=== PATIENT | male | born 1990 | race Caucasian/White ===

== ENCOUNTER 2018-10-06 12:06 | Emergency (ER) | payer BC, SELFPAY ==
[2018-10-06 12:07] VITALS: BP 130/85; PULSE 74; RESP 16; TEMP 36.6; O2SAT 97; BMI 25.9
[2018-10-06] MEDS: 0.9% Normal Saline 1,000 ML 1000 ML IV (13:08)
[2018-10-06] MEDS: Ondansetron 4 MG/2 ML Vial IV (13:08)
[2018-10-06 13:11] LABS: Absolute Lymphocyte Count 1.13 X10^3/ul (0.83-4.51); Absolute Neutrophil Count 9.6 X10^3/uL (2.0-7.7); Basophil# 0.01 X10^3/uL; Basophil% 0.1 % (0-1); Eosinophil# 0.09 X10^3/uL; Eosinophils% 0.8 % (0-5); Hematocrit 50.4 % (40-54); Hemoglobin 17.8 g/dl (13.0-16.5); Lymphocyte # 1.13 X10^3/ul (4.0); Lymphocyte % 9.7 % (19-41); Mean Corp Hgb Conc 35.3 g/gl (32-36); Mean Corpuscular Hgb 31.1 pg (27.0-32.0); Mean Platelet Vol. 9.5 fl (6.2-12.0); Monocyte# 0.81 X10^3/uL; Monocyte% 6.9 % (0-10); Neutrophil % 82.3 % (47-70); Platelet Count 225 K/mm3 (150-450); RBC Distribution Width CV 12.9 % (11.6-14.6); RBC Distribution Width SD 41.4 fl (35.1-43.9); Red Blood Count 5.73 M/mm3 (4.6-6.2); White Blood Count 11.7 K/mm3 (4.4-11.0)
[2018-10-06 13:13] LABS: POSITIVE COUNT NO; POSITIVE DIFFERENTIAL NO; POSITIVE MORPHOLOGY NO
[2018-10-06 13:21] LABS: Anion Gap 1 (5-15); BUN 15 mg/dL (7-18); BUN/Creat Ratio 12.8 RATIO (10-20); Calcium,Total 9.2 mg/dL (8.5-10.1); Chloride 103 mmol/L (98-107); Creatinine, Serum 1.17 mg/dL (0.70-1.30); EST Glomerular Filtration Rate 80 mL/min (>60); Est Glom Filt Rate - Afr Amer 97 mL/min (>60); Estimated Creatinine Clearance 86.34 ml/min; Glucose 104 mg/dL (74-106); Potassium 4.4 mmol/L (3.5-5.1); Sodium Level 138 mmol/L (136-145)
--- NOTE | 2018-10-06 15:35 | ED.DCSUM_ITS ---
- ER Visit Summary Date of Service: 10/06/18 Chief Complaint: Nausea and vomiting History of Present Illness: The patient is a 28 M who presents with nausea and vomiting that began yesterday. Patient states he has been unable to keep anything down. Patient states he has some aching and sharp abdominal pain. Patient states it is diffuse. Patient denies any diarrhea. Patient denies any melena or hematochezia. Patient denies any urinary complaints. Patient denies any fevers or chills. Physical Examination: Vital signs are stable. Patient is afebrile. Patient is in no acute distress. Oral mucosa is pink and moist. Neck is supple. Trachea is midline. There is no JVD noted. Heart was regular rate and rhythm. Lungs are clear and equal bilateral. Abdomen is soft. Bowel sounds are normal. There is mild diffuse tenderness. There is no rebound or guarding noted. Skin is warm dry. Cranial nerves II through XII are intact. There are no focal motor or sensory deficits noted. The remaining physical exam is within normal limits. Test Results: CBC and basic metabolic profile were obtained. Emergency Department Course and Treatment: Patient was given IV fluids and Zofran here. Patient felt better on reevaluation. Patient was instructed to start with small amounts of liquids and advance to a bland diet and then to a regular diet as he starts to feel better. Patient was given a prescription for Zofran. Patient understood and was agreeable with the plan. All questions were answered. Disposition: Discharge home Impression: Nausea, vomiting This note was generated with [employer] dictation software. It may contain incorrect words, spelling, and punctuation that were not noted in review of the chart prior to signing ED Disposition - Plan for ED Patient: Disposition: Home or Assisted Living Diagnosis: Nausea and vomiting Instructions: ED Nausea Vomiting Prescriptions: Ondansetron [Zofran Odt] 4 mg PO Q8H PRN PRN #10 tab PRN Reason: Nausea Referrals: Niraj Ellison MD [Primary Care Provider] - 3-5 Days
[2018-10-06 15:55] VITALS: PULSE 78; RESP 15; O2SAT 99
== END 2018-10-06 15:57 | disposition home or self-care (01) ==
PROVIDERS: Emergency Provider Emergency Medicine; Family Provider Family Medicine; PCP Family Medicine
DX: R11.2 Nausea with vomiting, unspecified (principal); M79.10 Myalgia, unspecified site; F90.9 Attention-deficit hyperactivity disorder, unspecified type
CPT/HCPCS: 80048; 85025; 96361; 96374; 99283; J7030; A4216; J2405

== ENCOUNTER 2021-03-30 04:04 | Emergency (ER) | payer BC, SELFPAY ==
[2021-03-30 04:06] VITALS: BP 157/93; PULSE 76; RESP 16; TEMP 36.4; O2SAT 98; BMI 31.4
--- NOTE | 2021-03-30 04:14 | CT_ITS ---
STUDY: CT ABDOMEN AND PELVIS WITHOUT CONTRAST REASON FOR EXAM: Male, 30 years old. Kidney Stone RADIATION DOSAGE (If Supplied By Facility): CTDIvol = ( 8.30 ) mGy, DLP = ( 439.46 ) mGycm TECHNIQUE: Transaxial 2.5 mm images were obtained from the dome of the diaphragm to the symphysis pubis without oral contrast, and without intravenous contrast. Sagittal and coronal images were reconstructed. This examination is limited for the evaluation of gastrointestinal, solid organs and vascular structures due to the lack of intravenous and oral contrast. Individualized dose optimization techniques were used for this CT. COMPARISON: CT abdomen pelvis 05/14/2017. . 05/26/2016. FINDINGS: The visualized lung bases are unremarkable. The visualized portions of the heart are within normal limits. Normal liver. Normal gallbladder and extrahepatic biliary system. Normal spleen. Normal pancreas. Normal bilateral adrenal glands. There is no obstructive uropathy, obstructive renal or ureteral calculi. There is a tiny right UVJ calculus of 0.2 cm. Nonobstructing 1 to 2 mm left inferior renal pole calculus. Posterior right interpolar cortical low attenuation less well-defined on current exam. Normal visualized stomach. Normal small intestine. Normal colon. The appendix is visualized and appears normal. Scattered nonenlarged mesenteric lymph nodes. Normal abdominal aorta. Normal inferior vena cava. Normal retroperitoneum. Decompressed urinary bladder. Normal visualized prostate gland. There is a small umbilical hernia containing fat. Stable bilateral L5 spondylolysis and narrowing of the posterior disc space L4-5, [address]/Abdomen/Pelvis without Cont IMPRESSION: There is no obstructive uropathy, obstructive renal or ureteral calculi. 0.2 cm right UVJ calculus. Less than 2 mm nonobstructing left inferior renal pole calculus is new. Indeterminate low-attenuation posterior left interpolar cortex less well defined on current exam, present in 2015. This is felt to be a benign entity. Other nonacute findings as outlined above. Electronically Signed: Opal Hollis MD at 5:30 EDT , Service support ,
[2021-03-30] MEDS: 0.9% Normal Saline 1,000 ML 250 ML IV (04:23)
[2021-03-30] MEDS: Ondansetron 4 MG/2 ML Vial IV (04:23)
[2021-03-30] MEDS: Ketorolac 30 MG/ML Syringe IV (04:24)
[2021-03-30] MEDS: Morphine 4 MG/ML Syringe IV ×2 (04:25→05:27)
[2021-03-30 04:27] LABS: Absolute Neutrophil Count 4.5 X10^3/uL (2.0-7.7); Basophil# 0.08 X10^3/uL; Basophil% 0.9 % (0-1); Eosinophil# 0.28 X10^3/uL; Eosinophils% 3.2 % (0-5); Hematocrit 47.5 % (40-54); Lymphocyte % 35.1 % (19-41); Mean Corp Hgb Conc 35.8 g/dL (32-36); Mean Corpuscular Hgb 30.5 pg (27.0-32.0); Mean Corpuscular Volume 85.3 fL (80-94); Mean Platelet Vol. 8.9 fl (6.2-12.0); Monocyte# 0.82 X10^3/uL; Monocyte% 9.3 % (0-10); NRBC Flagged by Analyzer 0 % (0-5); Neutrophil # 4.53 X10^3/uL (2.7-7.7); Neutrophil % 51.3 % (47-70); Platelet Count 246 K/mm3 (150-450); RBC Distribution Width CV 11.9 % (11.6-14.6); RBC Distribution Width SD 36.8 fl (35.1-43.9); Red Blood Count 5.57 M/mm3 (4.6-6.2); White Blood Count 8.8 K/mm3 (4.4-11.0)
[2021-03-30 04:32] LABS: Mucous, Urine 0 SEEN /hpf (<or=2+); Squamous Epithelial Cells - UA 0 SEEN /hpf (0-5)
[2021-03-30 04:33] LABS: Color, Urine Brown (Yellow); Glucose, Dipstick Normal (Normal); Ketone-Dipstick 5 mg/dl (Negative); Leukocyte Esterase-Dipstick 25 /ul (Negative); Nitrite-Dipstick Negative (Negative); Occult Blood-Urine 250 /ul (Negative); Protein-Dipstick 100 mg/dl (Negative); Urine Bilirubin Dipstick Negative (Negative); Urine Clarity Cloudy (Clear); Urine Urobilinogen 1 mg/dl (Normal)
[2021-03-30 04:39] LABS: Red Blood Cells-Urine > 100 SEEN /hpf (0-5)
[2021-03-30 04:41] LABS: Anion Gap 4 (5-15); BUN 13 mg/dL (7-18); BUN/Creat Ratio 11.8 RATIO (10-20); Calcium,Total 8.9 mg/dL (8.5-10.1); Chloride 106 mmol/L (98-107); EST Glomerular Filtration Rate 84 mL/min (>60); Est Glom Filt Rate - Afr Amer 102 mL/min (>60); Estimated Creatinine Clearance 90.22 ml/min; Glucose 120 mg/dL (74-106); Potassium 3.9 mmol/L (3.5-5.1); Sodium Level 139 mmol/L (136-145)
[2021-03-30 04:42] LABS: Bacteria 1+ /hpf (None Seen); White Blood Cells 0-5 SEEN /hpf (0-5)
--- NOTE | 2021-03-30 04:42 | EX.ED.DYSGE1 ---
HPI History of Present Illness Chief Complaint: Flank Pain Informant: patient Narrative Narrative: 30-year-old male with a history of kidney stones presents the emergency department with lower right pelvic pain. Patient states that 2 days ago he noticed some back discomfort and knew he was going to be passing a kidney stone soon. He states for the past couple hours pain has been significant including in his right testicle. He has never required surgery for this in the past. [facility] Medical History (Updated 03/30/21 @ 05:[address] Tom Arteaga DO) ADHD Kidney stones Home Medications dextroamphetamine-amphetamine [Adderall 30 mg Tablet] 30 mg PO BID 10/06/18 [History Last Taken Unknown] oxycodone-acetaminophen 1 tab PO Q6H PRN PRN 5 Days #20 tablet 03/30/21 [Rx Last Taken Unknown] tamsulosin 0.4 mg PO DAILY #7 capsule 03/30/21 [Rx Last Taken Unknown] Allergy/AdvReac Type Severity Reaction Status Date / Time amoxicillin Allergy Rash Verified 03/30/21 04:04 Penicillins Allergy Rash Verified 03/30/21 04:04 Surgical History no surgical history Social History (Updated 03/30/21 @ 04:[address] Tom Arteaga DO) Smoking Status: Never smoker substance use type: does not use ROS ROS ED Constitutional Constitutional ED: Denies chills or weight loss Eyes Eyes: Denies change in vision or diplopia ENT ENT ED: Denies ear pain, rhinorrhea or sore throat Cardiovascular Cardiovascular: Denies chest pain, orthopnea, palpitations or racing heartbeat Respiratory/Chest Respiratory/Chest: Denies cough, dyspnea or orthopnea Gastrointestinal Gastrointestinal: Reports abdominal pain and nausea; Denies diarrhea or vomiting Genitourinary Genitourinary ED: Reports hematuria; Denies dysuria or urinary frequency Musculoskeletal Musculoskeletal: Denies arthralgias or myalgias Integumentary Denies abscess or rash Neurologic Neurologic: Denies headache(s) or weakness Psychiatric Psychiatric: Denies anxiety, depression, suicidal ideation or suicidal thoughts Endocrine Endocrinology: Denies polydipsia, polyphagia or polyuria Allergic/Immunologic Allergic/Immunologic ED: Denies mouth swelling, tongue swelling or urticaria EXAM Physical Exam Narrative Exam Narrative: Patient appears in pain Const Vital Signs: 03/30/21 04:06 Temperature 97.5 F L Temperature Source Temporal Pulse Rate 76 Respiratory Rate 16 Blood Pressure 157/93 H Blood Pressure Mean 114 Pulse Ox 98 Oxygen Delivery Method Room Air Positive well nourished and well developed General Appearance ED: well developed HEENT Reports normocephalic, head/scalp atraumatic, TM's clear and moist mucous membranes Negative for trauma Tympanic Membrane ED: Yes TM's clear Eyes PERRL and EOMs intact bilaterally Neck no lymphadenopathy, supple and no JVD Resp normal respiratory effort and clear to auscultation bilaterally Cardio regular rate, regular rhythm and no murmurs GI normal to inspection, nondistended, normoactive bowel sounds and non-tender Palpation: soft Back/Spine no CVA tenderness and normal ROM Extremity normal to inspection General Extremety ED: Negative for edema General Extremity: Negative for edema Neuro oriented x3 and CN's II-XII intact bilaterally Sensorium / Orientation: alert Motor Exam: strength 5/5 throughout Psych mental status grossly normal Mood & Affect: Negative for depressed or tearful Skin no rashes or lesions noted and no wounds MDM MDM MDM Narrative Medical decision making narrative: Patient received morphine Toradol and Zofran as well as fluids. Some of the morphine was lost due to syringe malfunction. Therefore he was given some more. He is resting more comfortably. CT demonstrates a distal ureteral stone on the right measuring approximately 2 mm. Can plan will be to have the patient follow-up with urology. He has used Flomax in the past and liked it. He is also done well with Percocet. Lab Data Attestation: I reviewed the patient's lab results. Labs: Laboratory Results - last 24 hr 03/30/21 03/30/21 03/30/21 04:17 04:17 04:29 WBC 8.8 RBC 5.57 Hgb 17.0 H Hct 47.5 MCV 85.3 MCH 30.5 MCHC 35.8 RDW Std Deviation 36.8 RDW Coeff of [place] 11.9 Plt Count 246 MPV 8.9 Immature Gran % (Auto) 0.200 Neut % (Auto) 51.3 Lymph % (Auto) 35.1 [place] % (Auto) 9.3 Eos % (Auto) 3.2 Baso % (Auto) 0.9 Absolute Neuts (auto) 4.5 Absolute Lymphs (auto) 3.10 Nucleated RBC % 0 Sodium 139 Potassium 3.9 Chloride 106 Carbon Dioxide 29.0 Anion Gap 4 L BUN 13 Creatinine 1.10 Estim Creat Clear Calc 90.22 Est GFR (MDRD) Af Amer 102 Est GFR (MDRD) Non-Af 84 BUN/Creatinine Ratio 11.8 Glucose 120 H Calcium 8.9 Urine Color Brown Urine Clarity Cloudy Urine pH 5.0 Ur Specific [place] 1.030 Urine Protein 100 H Urine Glucose (UA) Normal Urine Ketones 5 H Urine Occult Blood 250 H Urine Nitrite Negative Urine Bilirubin Negative Urine Urobilinogen 1 H Ur Leukocyte Esterase 25 H Urine RBC > 100 SEEN Urine WBC 0-5 SEEN Ur Squamous Epith Cells 0 SEEN Urine Bacteria 1+ Urine Mucus 0 SEEN Discharge Plan Triage Chief Complaint: Flank Pain ED Provider: Tom Arteaga Dx/Rx/DC Orders Clinical Impression: Ureterolithiasis, Abdominal pain, acute Instructions: ED Kidney Stone w/ Colic Prescriptions: New oxycodone-acetaminophen [oxycodone-acetaminophen] 1 TABLET tablet 1 tab PO Q6H PRN PRN (Reason: pain) 5 Days Qty: 20 RF: 0 tamsulosin [tamsulosin] 0.4 MG capsule 0.4 mg PO DAILY Qty: 7 RF: 0 No Action dextroamphetamine-amphetamine [Adderall] 30 MG tablet 30 mg PO BID RF: 0 Primary Care Provider: Niraj Ellison Referrals: Niraj Ellison MD [Primary Care Provider] - Pietro Mac MD [STAFF PHYSICIAN] - As Needed (for local urology) Disposition Disposition: Home, Self Care
[2021-03-30 05:54] VITALS: BP 147/60; PULSE 79; RESP 18
== END 2021-03-30 05:54 | disposition home or self-care (01) ==
PROVIDERS: Emergency Provider Emergency Medicine; PCP Family Medicine
DX: N20.1 Calculus of ureter (principal); F90.9 Attention-deficit hyperactivity disorder, unspecified type; Z79.899 Other long term (current) drug therapy; Z87.442 Personal history of urinary calculi
CPT/HCPCS: 74176; 80048; 81001; 85025; 96361; 96374; 96375; 96376; 99283; J7030; A4216; J2405

== ENCOUNTER 2021-04-04 18:15 | Emergency (ER) | payer BC, SELFPAY ==
[2021-04-04 18:16] VITALS: BP 146/89; PULSE 62; RESP 13; TEMP 36.7; O2SAT 98; BMI 30.3
[2021-04-04 18:45] LABS: Mucous, Urine 0 SEEN /hpf (<or=2+); Squamous Epithelial Cells - UA 0 SEEN /hpf (0-5)
[2021-04-04] MEDS: Ketorolac 15 MG/ML Vial IV (18:45)
[2021-04-04] MEDS: Morphine 4 MG/ML Syringe IV (18:45)
[2021-04-04] MEDS: Ondansetron 4 MG/2 ML Vial IV (18:45)
[2021-04-04 18:48] LABS: Color, Urine Yellow (Yellow); Glucose, Dipstick Normal (Normal); Ketone-Dipstick Negative (Negative); Leukocyte Esterase-Dipstick 25 /ul (Negative); Nitrite-Dipstick Negative (Negative); Occult Blood-Urine 150 /ul (Negative); Protein-Dipstick 30 mg/dl (Negative); Specific Gravity, Urine 1.025 (1.002-1.030); Urine Bilirubin Dipstick Negative (Negative); Urine Clarity Sl. Cloudy (Clear); Urine Urobilinogen 1 mg/dl (Normal)
--- NOTE | 2021-04-04 18:48 | EDS_ITS ---
HPI History of Present Illness Chief Complaint: Abd Pain Informant: patient Onset/Context/Timing Onset: Days Timing: Continuous and Waxes and wanes Quality: Colicky pain Location: Right inguinal area Current Severity: Severe Maximum Severity: Severe Worsened by: Nothing Relieved by: Nothing Associated Symptoms Associated Symptoms: Nausea Narrative Narrative: Patient is a 30-year-old male who was seen on March 30 and diagnosed with ureteral stone with hydronephrosis and referred to urology. He was discharged home with Percocet and Flomax. He denies dysuria, frequency, or hematuria. Does have urgency. Denies testicular pain. He states he passed a 6.5 mm stone and did not have as much pain as he is presently experienced. He was told the stone was 3 mm in size. He has no other complaints. Review of urinalysis reveals 1+ bacteria with no pyuria or nitrites but was positive for blood on the . Prior similar symptoms: Yes Recent Illness/Hospitalization: Yes PFSH PFSH Medical History ADHD Kidney stones Home Medications dextroamphetamine-amphetamine [Adderall 30 mg Tablet] 30 mg PO BID 10/06/18 [History Last Taken Unknown] oxycodone-acetaminophen 1 tab PO Q6H PRN PRN 5 Days #20 tablet 03/30/21 [Rx Last Taken Unknown] tamsulosin 0.4 mg PO DAILY #7 capsule 03/30/21 [Rx Last Taken Unknown] naproxen 500 mg PO BID #20 tab 04/04/21 [Rx Last Taken Unknown] Allergy/AdvReac Type Severity Reaction Status Date / Time amoxicillin Allergy Rash Verified 04/04/21 18:16 Penicillins Allergy Rash Verified 04/04/21 18:16 Social History (Updated 04/04/21 @ 18:[address] Fritz Cervantes MD) household members: other Smoking Status: Never smoker alcohol intake: current alcohol intake frequency: other substance use type: does not use ROS ROS ED Constitutional Constitutional ED: Denies chills, fever(s), subjective or sweats Eyes Eyes: Denies blurry vision, change in vision or diplopia ENT ENT ED: Denies ear pain, rhinorrhea or sore throat Cardiovascular Cardiovascular: Denies chest pain, palpitations or racing heartbeat Respiratory/Chest Respiratory/Chest: Denies cough, dyspnea or dyspnea on exertion Gastrointestinal Gastrointestinal: Reports abdominal pain and nausea; Denies constipation, diarrhea, melena or vomiting Genitourinary Genitourinary ED: Denies dysuria, hematuria or urinary frequency Musculoskeletal Musculoskeletal: Denies arthralgias, back pain, myalgias or neck pain Integumentary Denies abscess, Abrasions or rash Neurologic Neurologic: Denies headache(s) or weakness EXAM Physical Exam Const Vital Signs: 04/04/21 18:16 Temperature 98.1 F Temperature Source Temporal Pulse Rate 62 Respiratory Rate 13 Blood Pressure 146/89 H Blood Pressure Mean 108 Pulse Ox 98 Oxygen Delivery Method Room Air Positive well nourished, well developed and obese General Appearance ED: well developed and other Patient is pale and appears in obvious discomfort. Nutritional Appearance: obese HEENT HEENT Narrative: Head is atraumatic normocephalic. Ears normal. Nares patent. Posterior pharynx unremarkable. Eyes PERRL and EOMs intact bilaterally General Eye ED: Negative for pale conjunctiva or scleral icterus Neck supple Resp normal respiratory effort and clear to auscultation bilaterally Cardio regular rate, regular rhythm, S1 normal heart sound, S2 normal heart sound and no murmurs GI normal to inspection, nondistended, normoactive bowel sounds, non-tender and non-distended Palpation: soft Back/Spine no CVA tenderness Thoracic Spine / Upper Back: Negative for paraspinal muscle tenderness Extremity normal to inspection General Extremety ED: Negative for edema or tenderness General Extremity: Negative for edema Neuro oriented x3 and CN's II-XII intact bilaterally Sensorium / Orientation: alert Motor Exam: strength 5/5 throughout Psych mental status grossly normal Skin no rashes or lesions noted and no wounds MDM MDM MDM Narrative Medical decision making narrative: With recent ER visit and diagnosis of ureteral stone suspect patient has hydroureter nephrosis due to obstructing stone. He was medicated with Toradol, morphine and Zofran for his pain and nausea respectively. UA was obtained. Patient was reassessed at 2003. He is no longer in pain. He was discharged with prescription for Naprosyn. Lab Data Attestation: I reviewed the patient's lab results. Lab results narrative: Urine is improved from March 30. Labs: Laboratory Results - last 24 hr 04/04/21 18:30 Urine Color Yellow Urine Clarity Sl. Cloudy Urine pH 6.0 Ur Specific [place] 1.025 Urine Protein 30 H Urine Glucose (UA) Normal Urine Ketones Negative Urine Occult Blood 150 H Urine Nitrite Negative Urine Bilirubin Negative Urine Urobilinogen 1 H Ur Leukocyte Esterase 25 H Urine RBC 10-25 SEEN Urine WBC 0-5 SEEN Ur Squamous Epith Cells 0 SEEN Calcium Oxalate Crystal RARE Amorphous Sediment 1+ Urine Bacteria RARE Urine Mucus 0 SEEN Discharge Plan Triage Chief Complaint: Abd Pain ED Provider: Fritz Cervantes Dx/Rx/DC Orders Clinical Impression: Hydronephrosis with urinary obstruction due to ureteral calculus Instructions: ED Kidney Stone w/ Colic Prescriptions: New naproxen 500 MG tablet 500 mg PO BID Qty: 20 RF: 0 No Action dextroamphetamine-amphetamine [Adderall] 30 MG tablet 30 mg PO BID RF: 0 oxycodone-acetaminophen [oxycodone-acetaminophen] 1 TABLET tablet 1 tab PO Q6H PRN PRN (Reason: pain) 5 Days Qty: 20 RF: 0 tamsulosin [tamsulosin] 0.4 MG capsule 0.4 mg PO DAILY Qty: 7 RF: 0 Primary Care Provider: Niraj Ellison Referrals: Niraj Ellison MD [Primary Care Provider] - Pietro Mac MD [STAFF PHYSICIAN] - 5-7 Days Disposition Disposition: Home, Self Care
[2021-04-04] MEDS: 0.9% Normal Saline 1,000 ML 250 ML IV (18:52)
[2021-04-04 18:57] LABS: White Blood Cells 0-5 SEEN /hpf (0-5)
[2021-04-04 19:00] LABS: Amorphous Sediment 1+; Calcium Oxalate Crystals Ur RARE /hpf (<or=2+); Red Blood Cells-Urine 10-25 SEEN /hpf (0-5)
[2021-04-04 19:01] LABS: Bacteria RARE /hpf (None Seen)
[2021-04-04 20:21] VITALS: BP 157/106; PULSE 77; RESP 16; O2SAT 100
== END 2021-04-04 20:27 | disposition home or self-care (01) ==
PROVIDERS: Emergency Provider Emergency Medicine; PCP Family Medicine
DX: N13.2 Hydronephrosis with renal and ureteral calculous obstruction (principal); F90.9 Attention-deficit hyperactivity disorder, unspecified type; E66.9 Obesity, unspecified; Z79.899 Other long term (current) drug therapy
CPT/HCPCS: 81001; 96361; 96374; 96375; 99282; J7030; A4216; J2405

== ENCOUNTER 2021-05-13 11:19 | Emergency (ER) | payer BC, SELFPAY ==
[2021-05-13 11:20] VITALS: BP 162/102; PULSE 74; RESP 16; TEMP 36.6; O2SAT 100; BMI 30.7
--- NOTE | 2021-05-13 11:40 | EDS_ITS ---
HPI History of Present Illness Chief Complaint: Complaint Informant: patient Narrative Narrative: Patient had some slightly dark urine last night. Today he had some red urine. He might of had a small speck of a clot. Really did not have any notable dysuria. He had a small amount of urgency. He does not feel like he is distended or unable to go. He is not having back or flank pain. He had a little pressure over the bladder earlier but that is gone. Patient does have a history of kidney stones and actually had one a little little over a month ago. But he is not having the pain consistent with that now. He had just a little bit of the pain yesterday but it is gone no fevers or chills. No other areas of bleeding or bruising. Nothing specifically made this better or worse. No sores or lesions. No discharge. [facility] Medical History ADHD Kidney stones Home Medications dextroamphetamine-amphetamine [Adderall 30 mg Tablet] 30 mg PO BID 10/06/18 [History Last Taken Unknown] tamsulosin [Flomax] 0.4 mg PO DAILY #7 cap 05/13/21 [Rx Last Taken Unknown] Allergy/AdvReac Type Severity Reaction Status Date / Time amoxicillin Allergy Rash Verified 05/13/21 11:21 Penicillins Allergy Rash Verified 05/13/21 11:21 Social History household members: other Smoking Status: Never smoker alcohol intake: current alcohol intake frequency: other substance use type: does not use ROS ROS ED Constitutional Constitutional ED: Denies chills, fever(s) or sweats Respiratory/Chest Respiratory/Chest: Denies cough or dyspnea Gastrointestinal Gastrointestinal: Denies abdominal pain, melena, nausea or vomiting Genitourinary Genitourinary ED: Reports hematuria Musculoskeletal Musculoskeletal: Denies myalgias or neck pain Integumentary Denies rash Neurologic Neurologic: Denies paresthesias or weakness Endocrine Endocrinology: Denies polydipsia or polyuria Hematologic/Lymphatic Hematologic/Lymphatic: Denies easy bleeding or easy bruising EXAM Physical Exam Const Vital Signs: 05/13/21 11:20 Temperature 98 F Temperature Source Temporal Pulse Rate 74 Respiratory Rate 16 Blood Pressure 162/102 H Blood Pressure Mean 122 Pulse Ox 100 Oxygen Delivery Method Room Air Patient is sitting quietly and comfortably in the bed type on his phone. Positive well nourished and well developed General Appearance ED: well developed and NAD; Negative for pallor HEENT normocephalic and atraumatic Eyes General Eye ED: Negative for pale conjunctiva or scleral icterus Neck no JVD Resp normal respiratory effort Cardio regular rate and regular rhythm GI non-tender, non-distended and no masses Auscultation: normoactive bowel sounds; Negative for hyperactive bowel sounds or hypoactive bowel sounds Palpation: soft Rectal Exam: Negative for tenderness no CVA tenderness Narrative: No inguinal area tenderness. Groin / Perineum Exam: Negative for lesions Extremity normal to inspection Neuro Sensorium / Orientation: alert Psych mental status grossly normal Skin Skin Narrative: No contusions, abrasions, petechiae or purpura. General Skin Exam: Negative for pallor Lesions: no lesions Rashes: no rashes MDM MDM MDM Narrative Medical decision making narrative: Urine does show a large number of red cells but no sign of infection. Patient is rechecked. He does not have a distended bladder. He does not feel like he has to urinate. He was able to urinate easily here. His urine is yellow. There certainly is some blood in there. I do not think he needs antibiotics. I am wondering if he may have passed or be passing a small stone. He states sometimes he gets pressure but he is not having pain now. He requested Flomax as this is helped him a lot before. He will follow up with Dr. Pro tuttle. We discussed returning with fevers, pain, worsening blood, inability or difficulty urinating or other concerns. Lab Data Attestation: I reviewed the patient's lab results. Labs: Laboratory Results - last 24 hr 05/13/21 11:48 Urine Color Yellow Urine Clarity Sl. Cloudy Urine pH 5.0 Ur Specific [place] 1.025 Urine Protein 30 H Urine Glucose (UA) Normal Urine Ketones 5 H Urine Occult Blood 250 H Urine Nitrite Negative Urine Bilirubin Negative Urine Urobilinogen 1 H Ur Leukocyte Esterase 25 H Urine RBC > 100 SEEN Urine WBC 0 SEEN Ur Squamous Epith Cells 0 SEEN Urine Bacteria 0 SEEN Urine Mucus 0 SEEN Discharge Plan Triage Chief Complaint: Complaint ED Provider: Allan Shell Dx/Rx/DC Orders Clinical Impression: Hematuria Instructions: ED Hematuria Prescriptions: New tamsulosin [Flomax] 0.4 mg capsule 0.4 mg PO DAILY Qty: 7 RF: 0 No Action dextroamphetamine-amphetamine [Adderall] 30 MG tablet 30 mg PO BID RF: 0 Primary Care Provider: Niraj Ellison Referrals: Niraj Ellison MD [Primary Care Provider] - Pietro Mac MD [STAFF PHYSICIAN] - 3-5 Days Disposition Disposition: Home, Self Care
[2021-05-13 11:55] LABS: Bacteria 0 SEEN /hpf (None Seen); Mucous, Urine 0 SEEN /hpf (<or=2+); Squamous Epithelial Cells - UA 0 SEEN /hpf (0-5); White Blood Cells 0 SEEN /hpf (0-5)
[2021-05-13 11:57] LABS: Color, Urine Yellow (Yellow); Glucose, Dipstick Normal (Normal); Ketone-Dipstick 5 mg/dl (Negative); Leukocyte Esterase-Dipstick 25 /ul (Negative); Nitrite-Dipstick Negative (Negative); Occult Blood-Urine 250 /ul (Negative); Protein-Dipstick 30 mg/dl (Negative); Specific Gravity, Urine 1.025 (1.002-1.030); Urine Bilirubin Dipstick Negative (Negative); Urine Clarity Sl. Cloudy (Clear); Urine Urobilinogen 1 mg/dl (Normal)
[2021-05-13 12:03] LABS: Red Blood Cells-Urine > 100 SEEN /hpf (0-5)
[2021-05-13 12:57] VITALS: BP 124/77; PULSE 62; RESP 15; O2SAT 98
== END 2021-05-13 12:58 | disposition home or self-care (01) ==
PROVIDERS: Emergency Provider Emergency Medicine; PCP Family Medicine
DX: R31.9 Hematuria, unspecified (principal); F90.9 Attention-deficit hyperactivity disorder, unspecified type; Z79.899 Other long term (current) drug therapy
CPT/HCPCS: 81001; 87086; 99282

== ENCOUNTER 2021-06-29 16:06 | Outpatient (CLI) | payer BC, SELFPAY ==
--- NOTE | 2021-06-29 14:30 | VAS_PTH ---
PATIENT: KIRA GONZALEZ LOC: [facility] U#:[id number] AGE/SX: 30/M ROOM: RE06/29/[address]: Dr. En Harden MD : 1990 BED: DIS: 06/29/2021 SPEC #: [id number] RECD: 06/29/21 15:51 STATUS: NISREEN MELI #: [id number] NIR: 06/29/21 14:[address]: En Harden DEPT: SURGICAL PATHOLOGY RECD BY: Etta Underwood ENTERED: 07/02/21 08:27 SP TYPE: VAS OTHR DR: Dr. Niraj Ellison MD Tissues: A - Vas deferens, NOS B - Vas deferens, NOS Procedures: Surgery Specimen Level II HEADER OPERATION: Bilateral partial vasectomy PRE-OP DIAGNOSIS: Sterilization TISSUE SUBMITTED: A ? Right vas deferens, B ? Left vas deferens MICROSCOPIC DIAGNOSIS A. Right vas deferens, partial vasectomy: Completely transected segment of vas deferens, no pathologic diagnosis. B. Left vas deferens, partial vasectomy: Completely transected segment of vas deferens, no pathologic diagnosis. FAY:lizbeth 07/03/2021 MICROSCOPIC DESCRIPTION Slides are reviewed. GROSS DESCRIPTION A - Received is one container designated right vas deferens. The specimen consists of a tubular segment of hill soft tissue measuring 1 cm in length and 0.2 cm in diameter. The specimen is sectioned and submitted entirely in one cassette. B - Received is one container designated left vas deferens. The specimen consists of a tubular segment of hill soft tissue measuring 1 cm in length and 0.1 cm in diameter. The specimen is sectioned and submitted entirely in one cassette. / FAY:lizbeth 07/02/2021 TC:4 CPT: 64891 x2
== END 2021-06-29 23:59 | disposition short-term general hospital (02) ==
LOC: LABSPEC 16:07
PROVIDERS: PCP Family Medicine; Visit Provider Surgery
DX: Z30.2 Encounter for sterilization (principal)
CPT/HCPCS: 88302

== ENCOUNTER 2021-08-15 14:50 | Outpatient (CLI) | payer BC, SELFPAY ==
[2021-08-17 09:10] LABS: Semen Analysis Post Vas ABSENT
== END 2021-08-15 23:59 | disposition home or self-care (01) ==
LOC: LABSPEC 14:52
PROVIDERS: PCP Family Medicine; Visit Provider Surgery
DX: Z30.2 Encounter for sterilization (principal)
CPT/HCPCS: 89321

== ENCOUNTER 2021-08-18 23:33 | Emergency (ER) | payer BC, SELFPAY ==
[2021-08-18 23:33] VITALS: BP 147/97; PULSE 85; RESP 16; TEMP 36.7; O2SAT 95; BMI 31.4
--- NOTE | 2021-08-19 00:31 | CT_ITS ---
EXAM: CT ABDOMEN AND PELVIS WITH INTRAVENOUS CONTRAST CLINICAL INDICATION: diffuse abd pain, low back pain TECHNIQUE: Helically acquired images were obtained of the abdomen and pelvis with intravenous contrast. CTDIvol = ( 29 ) mGy, DLP = ( 1075 ) mGycm This CT exam was performed using one or more of the following dose reduction techniques: automated exposure control, adjustment of the mA and/or kV according to patient size, and/or use of iterative reconstruction technique. This report was created using [employer] report generation technology. CONTRAST: IV 100mL Isovue-300 COMPARISON: None. FINDINGS: LOWER THORAX: Lung bases are clear. No cardiomegaly. No significant pericardial effusion. ABDOMEN: LIVER: Unremarkable. Homogeneous. No focal mass. GALLBLADDER AND BILE DUCTS: Unremarkable. No calcified gallstones. No gallbladder distention or wall edema. No intra- or extrahepatic biliary ductal dilation. PANCREAS: Unremarkable. No focal cystic or solid mass. SPLEEN: Unremarkable. Normal size without focal cystic or solid mass. ADRENALS: Unremarkable. No nodules. KIDNEYS AND URETERS: Small rounded hypodensity at the posterior medial aspect of the right kidney at the interpolar level. Consider a follow-up ultrasound of the kidney to confirm suspected cyst. Normal renal size and position. No hydronephrosis. STOMACH AND BOWEL: No other hollow viscus or solid organ pathology. No stomach or bowel distention. No focal inflammatory change. PELVIS: APPENDIX: No evidence of acute appendicitis. BLADDER: Unremarkable. REPRODUCTIVE: Unremarkable as visualized. No mass. ABDOMEN and PELVIS: INTRAPERITONEAL SPACE: No free air. No ascites or other fluid collection. BONES/JOINTS: Osseous structures are normal for age. No suspicious lytic or blastic abnormality. SOFT TISSUES: Unremarkable. No discrete abdominal or pelvic wall hernia. VASCULATURE: Unremarkable. Abdominal aorta is non-dilated. LYMPH NODES: Unremarkable. No enlarged lymph nodes. CT/Abdomen/Pelvis W IV Cont ONLY IMPRESSION: 1. No acute or inflammatory disease or bowel obstruction. 2. Small rounded hypodensity at the posterior medial aspect of the right kidney at the interpolar level. Consider a follow-up ultrasound of the kidney to confirm suspected cyst. Electronically Signed: Watson Bustos MD at 1:39 EST ,
--- NOTE | 2021-08-19 00:32 | EX.ED.DYSGE1 ---
HPI History of Present Illness Chief Complaint: Back Informant: patient Onset/Context/Timing Onset: Days (3) Context: Gradual Onset Timing: Continuous and Waxes and wanes Quality: Aching Location: Lumbar area paraspinal bilateral, occasionally in abdomen diffuse Current Severity: Moderate Maximum Severity: Moderate Worsened by: Nothing in particular Relieved by: Nothing in particular Associated Symptoms Associated Symptoms: Abdominal pain at times Narrative Narrative: Patient presenting for gradual onset of low back discomfort, initially started feeling like muscle soreness but has progressed, at times is colicky but does not feel the same as kidney stone pain, and is nonlateralizing. It does not radiate down his legs, it is not worse with movement or different positions and at times he feels like he cannot get comfortable because of that. Occasionally he feels like his entire abdomen is hurting but he states it is weird, it feels like it is in the back part of my abdomen. He has not been constipated, bowel movements have been normal without blood or melena, and after bowel movement the pain does not change. It is no different with eating, urinating, he has no nausea, vomiting, fevers, he had noticed that one time taking a deep breath it almost took his breath away but he did not necessarily have worsening pain with it. Never had this before. No recent injuries. No overuse, heavy lifting, or obvious reason to have muscular back pain. No history of any abdominal surgeries. Does not use regular or recent alcohol. [facility] Medical History ADHD Encounter for sterilization Hematuria Kidney stones Home Medications dextroamphetamine-amphetamine [Adderall 30 mg Tablet] 30 mg PO BID 10/06/18 [History Last Taken Unknown] dicyclomine 20 mg PO Q6H PRN PRN #20 capsule 08/19/21 [Rx Last Taken Unknown] Allergy/AdvReac Type Severity Reaction Status Date / Time amoxicillin Allergy Rash Verified 08/18/21 23:35 Penicillins Allergy Rash Verified 08/18/21 23:35 Family History Brother Hypertension High cholesterol Father Hypertension High cholesterol Cancer skin cancer Surgical History History of local excision of skin lesion History of vasectomy (~06/2021) Social History household members: other Smoking Status: Former smoker alcohol intake: current alcohol intake frequency: other substance use type: does not use ROS ROS ED Constitutional Constitutional ED: Denies chills or fever(s) Eyes Eyes: Denies change in vision or diplopia ENT ENT ED: Denies rhinorrhea or sore throat Cardiovascular Cardiovascular: Denies chest pain or palpitations Respiratory/Chest Respiratory/Chest: Denies cough or dyspnea Gastrointestinal Gastrointestinal: Reports as per HPI and abdominal pain; Denies constipation, diarrhea, nausea or vomiting Genitourinary Genitourinary ED: Denies dysuria or hematuria Musculoskeletal Musculoskeletal: Reports as per HPI and back pain; Denies neck pain Integumentary Denies abscess or rash Neurologic Neurologic: Denies headache(s), paresthesias or weakness Psychiatric Psychiatric: Denies anxiety or suicidal thoughts EXAM Physical Exam Const Vital Signs: 08/18/21 23:33 08/19/21 02:01 Temperature 98.1 F Temperature Source Temporal Pulse Rate 85 71 Respiratory Rate 16 16 Blood Pressure 147/97 H 137/86 H Blood Pressure Mean 113 103 Pulse Ox 95 99 Oxygen Delivery Method Room Air Room Air Positive well nourished and well developed General Appearance ED: well developed and NAD HEENT Reports moist mucous membranes normocephalic and atraumatic Eyes PERRL and EOMs intact bilaterally Neck full ROM and supple Resp normal respiratory effort and clear to auscultation bilaterally Cardio regular rate, regular rhythm and no murmurs Cardio Narrative: 2+/4 bilateral dorsalis pedis and radial pulses, symmetric GI soft to palpation, non-tender and non-distended Auscultation: normoactive bowel sounds Palpation: soft; Negative for hernia, mass or pulsatile mass Back/Spine no CVA tenderness General Back: other FROM Extremity normal to inspection and full ROM General Extremety ED: Negative for edema, pulses abnormal or tenderness General Extremity: Negative for edema or pulses abnormal Neuro oriented x3, CN's II-XII intact bilaterally, no sensory deficits noted, deep tendon reflexes 2+ bilaterally and gait normal Sensorium / Orientation: awake and alert Motor Exam: strength 5/5 throughout Skin no rashes or lesions noted and no wounds MDM MDM MDM Narrative Medical decision making narrative: I did a CT scan to look at the patient's retroperitoneum, essentially is normal except for a possible cyst on his right kidney, outpatient ultrasound is recommended to further evaluate/characterize this, that does not need to be done emergently. Everything was essentially normal. I do not have an obvious explanation for the patient's discomfort. Possible it could be bowel in nature since it does not seem to be musculoskeletal, I will prescribe him some Bentyl and give him a dose here to see if that helps and advised that he follow-up, he is comfortable with that plan. Lab Data Attestation: I reviewed the patient's lab results. Labs: Laboratory Results - last 24 hr 08/19/21 08/19/21 08/19/21 00:35 00:38 00:40 WBC 9.2 RBC 5.36 Hgb 16.5 Hct 47.5 MCV 88.6 MCH 30.8 MCHC 34.7 RDW Std Deviation 38.9 RDW Coeff of [place] 12.1 Plt Count 234 MPV 9.5 Immature Gran % (Auto) 0.200 Neut % (Auto) 49.4 Lymph % (Auto) 37.9 Bracken % (Auto) 8.1 Eos % (Auto) 3.6 Baso % (Auto) 0.8 Absolute Neuts (auto) 4.6 Absolute Lymphs (auto) 3.50 Nucleated RBC % 0 Sodium 142 Potassium 4.3 Chloride 107 Carbon Dioxide 31.0 Anion Gap 4 L BUN 16 Creatinine 1.21 Estim Creat Clear Calc 81.29 Est GFR (MDRD) Af Amer 91 Est GFR (MDRD) Non-Af 75 BUN/Creatinine Ratio 13.2 Glucose 92 Calcium 9.1 Total Bilirubin 0.30 AST 27 ALT 52 Alkaline Phosphatase 55 Total Protein 7.1 Albumin 3.9 Globulin 3.2 Albumin/Globulin Ratio 1.2 Lipase 119 Urine Color Yellow Urine Clarity Clear Urine pH 5.0 Ur Specific Jermyn 1.030 Urine Protein Negative Urine Glucose (UA) Normal Urine Ketones 5 H Urine Occult Blood Negative Urine Nitrite Negative Urine Bilirubin Negative Urine Urobilinogen Normal Ur Leukocyte Esterase Negative Urine RBC 0 SEEN Urine WBC 0 SEEN Ur Squamous Epith Cells 0 SEEN Urine Bacteria RARE Urine Mucus 2+ Radiography Diagnostic Testing: Clinical Impression(s) from Imaging Studies Abdomen/Pelvis CT 08/19/21 00:31 IMPRESSION: 1. No acute or inflammatory disease or bowel obstruction. 2. Small rounded hypodensity at the posterior medial aspect of the right kidney at the interpolar level. Consider a follow-up ultrasound of the kidney to confirm suspected cyst. Electronically Signed: Watson Bustos MD at 1:39 EST , Discharge Plan Triage Chief Complaint: Back ED Provider: Christiano Phan Dx/Rx/DC Orders Clinical Impression: Low back pain, Intermittent abdominal pain Instructions: ED Back Pain (Acute or Chronic) Prescriptions: New dicyclomine 10 MG capsule 20 mg PO Q6H PRN PRN (Reason: abdominal discomfort) Qty: 20 RF: 0 No Action dextroamphetamine-amphetamine [Adderall] 30 MG tablet 30 mg PO BID RF: 0 Primary Care Provider: Niraj Ellison Referrals: Niraj Ellison MD [Primary Care Provider] - 3-5 Days if not improving Disposition Disposition: Home, Self Care
[2021-08-19 00:46] LABS: Red Blood Cells-Urine 0 SEEN /hpf (0-5); Squamous Epithelial Cells - UA 0 SEEN /hpf (0-5); White Blood Cells 0 SEEN /hpf (0-5)
[2021-08-19] MEDS: Ketorolac 15 MG/ML Vial IV (00:46)
[2021-08-19] MEDS: 0.9% Normal Saline 1,000 ML 1000 ML IV (00:46)
[2021-08-19] MEDS: Dicyclomine 10 MG Capsule 20 MG PO (00:46)
[2021-08-19 00:51] LABS: Color, Urine Yellow (Yellow); Glucose, Dipstick Normal (Normal); Ketone-Dipstick 5 mg/dl (Negative); Leukocyte Esterase-Dipstick Negative /ul (Negative); Nitrite-Dipstick Negative (Negative); Occult Blood-Urine Negative /ul (Negative); Protein-Dipstick Negative (Negative); Urine Bilirubin Dipstick Negative (Negative); Urine Clarity Clear (Clear); Urine Urobilinogen Normal (Normal)
[2021-08-19 00:54] LABS: Absolute Neutrophil Count 4.6 X10^3/uL (2.0-7.7); Basophil# 0.07 X10^3/uL; Basophil% 0.8 % (0-1); Eosinophil# 0.33 X10^3/uL; Eosinophils% 3.6 % (0-5); Hematocrit 47.5 % (40-54); Hemoglobin 16.5 g/dL (13.0-16.5); Lymphocyte % 37.9 % (19-41); Mean Corp Hgb Conc 34.7 g/dL (32-36); Mean Corpuscular Hgb 30.8 pg (27.0-32.0); Mean Corpuscular Volume 88.6 fL (80-94); Mean Platelet Vol. 9.5 fl (6.2-12.0); Monocyte# 0.75 X10^3/uL; Monocyte% 8.1 % (0-10); NRBC Flagged by Analyzer 0 % (0-5); Neutrophil # 4.56 X10^3/uL (2.7-7.7); Neutrophil % 49.4 % (47-70); Platelet Count 234 K/mm3 (150-450); RBC Distribution Width CV 12.1 % (11.6-14.6); RBC Distribution Width SD 38.9 fl (35.1-43.9); Red Blood Count 5.36 M/mm3 (4.6-6.2); White Blood Count 9.2 K/mm3 (4.4-11.0)
[2021-08-19 00:58] LABS: Bacteria RARE /hpf (None Seen); Mucous, Urine 2+ /hpf (<or=2+)
[2021-08-19 01:00] LABS: ALB/GLOB Ratio 1.2 RATIO (0.9-2.4); AST(SGOT) 27 U/L (15-37); Alanine Aminotransfer ALT/SGPT 52 U/L (16-61); Albumin, Serum 3.9 g/dL (3.2-5.0); Alkaline Phosphatase 55 U/L (45-117); Anion Gap 4 (5-15); BUN 16 mg/dL (7-18); BUN/Creat Ratio 13.2 RATIO (10-20); Calcium,Total 9.1 mg/dL (8.5-10.1); Chloride 107 mmol/L (98-107); Creatinine, Serum 1.21 mg/dL (0.70-1.30); EST Glomerular Filtration Rate 75 mL/min (>60); Est Glom Filt Rate - Afr Amer 91 mL/min (>60); Estimated Creatinine Clearance 81.29 ml/min; Globulin 3.2 g/dL (2.2-4.2); Glucose 92 mg/dL (74-106); Lipase 119 U/L (73-393); Potassium 4.3 mmol/L (3.5-5.1); Protein, Total 7.1 g/dL (6.4-8.2); Sodium Level 142 mmol/L (136-145)
[2021-08-19 02:01] VITALS: BP 137/86; PULSE 71; RESP 16; O2SAT 99
[2021-08-19 02:35] VITALS: BP 120/64; PULSE 79; RESP 16; O2SAT 99
== END 2021-08-19 02:35 | disposition home or self-care (01) ==
PROVIDERS: Emergency Provider Emergency Medicine; PCP Family Medicine; Visit Provider Emergency Medicine
DX: M54.50 Low back pain, unspecified (principal); R10.9 Unspecified abdominal pain; F90.9 Attention-deficit hyperactivity disorder, unspecified type; Z79.899 Other long term (current) drug therapy; Z87.891 Personal history of nicotine dependence
CPT/HCPCS: 74177; 80053; 81001; 83690; 85025; 96374; 99283; Q9967; A4216

== ENCOUNTER 2021-08-22 16:45 | Outpatient (CLI) | payer BC, SELFPAY ==
[2021-08-23 12:46] LABS: Semen Analysis Post Vas ABSENT
== END 2021-08-22 23:59 | disposition home or self-care (01) ==
LOC: LAB 16:47
PROVIDERS: PCP Family Medicine; Referring Provider Surgery; Visit Provider Surgery
DX: Z30.2 Encounter for sterilization (principal)
CPT/HCPCS: 89321

== ENCOUNTER 2022-07-01 18:46 | Emergency (ER) | payer BC, SELFPAY ==
[2022-07-01 18:47] VITALS: BP 139/98; PULSE 104; RESP 16; TEMP 37; O2SAT 97; BMI 29.8
--- NOTE | 2022-07-01 19:08 | EX.ED.DYSGE1 ---
HPI History of Present Illness Chief Complaint: Nausea/Vomiting Informant: patient Narrative Narrative: Awaken nausea and vomiting throughout the day. Significant other ate the same meal yesterday not sick. Total 6 times last time hour ago. No diarrhea last bowel movement this morning. No fevers no abdominal pain. Tolerating some oral fluids. History of similar with stomach virus. Allergies to the penicillin family. Denies any bloody emesis. Prior similar symptoms: Yes PFSH PFSH Medical History ADHD Encounter for sterilization Hematuria Kidney stones Home Medications dextroamphetamine-amphetamine 30 mg tablet (Adderall) 30 mg PO BID 10/06/18 [History Last Taken Unknown] buspirone 15 mg tablet 15 mg PO BID 07/01/22 [History Last Taken Unknown] ondansetron 4 mg disintegrating tablet 4 mg PO Q6H PRN nausea and vomiting #10 tabs 07/01/22 [Rx Last Taken Unknown] sertraline 100 mg tablet 200 mg PO DAILY 07/01/22 [History Last Taken Unknown] Allergy/AdvReac Type Severity Reaction Status Date / Time amoxicillin Allergy Rash Verified 07/01/22 18:53 Penicillins Allergy Rash Verified 07/01/22 18:53 Family History Brother Hypertension High cholesterol Father Hypertension High cholesterol Cancer skin cancer Surgical History History of local excision of skin lesion History of vasectomy (~06/2021) Social History household members: other Smoking Status: Former smoker alcohol intake: current alcohol intake frequency: other substance use type: does not use ROS ROS ED Constitutional Constitutional ED: Denies chills, fever(s) or sweats Eyes Eyes: Denies change in vision ENT ENT ED: Denies dysphagia or sore throat Cardiovascular Cardiovascular: Denies chest pain, leg edema, palpitations or racing heartbeat Respiratory/Chest Respiratory/Chest: Denies cough, dyspnea or dyspnea on exertion Gastrointestinal Gastrointestinal: Reports nausea and vomiting; Denies abdominal pain or diarrhea Genitourinary Genitourinary ED: Denies dysuria, hematuria or urinary frequency Musculoskeletal Musculoskeletal: Denies back pain, extremity pain or neck pain Integumentary Denies rash or wounds Neurologic Neurologic: Denies headache(s), paresthesias or weakness EXAM Physical Exam Const Vital Signs: 07/01/22 18:47 Temperature 98.6 F Temperature Source Temporal Pulse Rate 104 H Respiratory Rate 16 Blood Pressure 139/98 H Blood Pressure Mean 111 Pulse Ox 97 Oxygen Delivery Method Room Air Positive well nourished and well developed General Appearance ED: well developed and NAD HEENT Reports moist mucous membranes normocephalic and atraumatic Eyes PERRL, EOMs intact bilaterally and conjunctivae normal General Eye ED: Yes normal appearance of both eyes Neck no lymphadenopathy and supple General: Negative for tenderness Chest Wall Chest: Negative for tenderness Resp normal respiratory effort and normal air movement Effort and Inspection: symmetric chest movement; Negative for respiratory distress Cardio regular rhythm and no murmurs Rate: tachycardic Peripheral Pulses: pulses 2+ throughout GI normal to inspection, nondistended, normoactive bowel sounds and non-tender GI Narrative: Negative Kelly's or McBurney's tenderness. Palpation: Negative for guarding or rebound tenderness present Back/Spine no CVA tenderness and no thoracic nor lumbar tenderness Extremity normal to inspection General Extremety ED: Negative for edema or tenderness General Extremity: Negative for edema Neuro oriented x3 and no sensory deficits noted Sensorium / Orientation: awake and alert Skin no rashes or lesions noted and no wounds MDM MDM MDM Narrative Medical decision making narrative: Vital stable acute vomiting today no diarrhea. Differential gastritis versus early gastroenteritis. Is a nontender abdomen for concerns of any acute surgical event. He is given IV fluids, given Zofran. Reevaluation improving symptoms. He is able to tolerate oral fluids on exam. Discussed likely viral gastritis currently. Prescription for Zofran to use as needed. Outpatient follow-up. Lab Data Attestation: I reviewed the patient's lab results. Labs: Laboratory Results - last 24 hr 07/01/22 19:20 Sodium 141 Potassium 4.7 Chloride 106 Carbon Dioxide 34.0 H Anion Gap 1 L BUN 15 Creatinine 1.20 Estim Creat Clear Calc 81.97 Est GFR (MDRD) Af Amer 92 Est GFR (MDRD) Non-Af 76 BUN/Creatinine Ratio 12.5 Glucose 109 H Calcium 8.9 Discharge Plan Triage Chief Complaint: Nausea/Vomiting ED Provider: Osbaldo Foy Dx/Rx/DC Orders Clinical Impression: Nausea & vomiting Instructions: ED Vomiting (Adult) Prescriptions: New ondansetron 4 mg tablet,disintegrating 4 mg PO Q6H PRN (Reason: nausea and vomiting) Qty: 10 0RF No Action dextroamphetamine-amphetamine [Adderall] 30 MG tablet 30 mg PO BID sertraline 100 mg tablet 200 mg PO DAILY Label Comments: take 2 tablets by mouth once daily buspirone 15 mg tablet 15 mg PO BID Primary Care Provider: Niraj Ellison Referrals: Niraj Ellison MD [Primary Care Provider] - 3-5 Days if not improving Disposition Disposition: Home, Self Care Discharge Date/Time: 07/01/22 21:38
[2022-07-01] MEDS: 0.9% Normal Saline 1,000 ML 1000 ML IV (19:18)
[2022-07-01] MEDS: Ondansetron 4 MG/2 ML Vial IV (19:18)
[2022-07-01 19:42] LABS: Anion Gap 1 (5-15); BUN 15 mg/dL (7-18); BUN/Creat Ratio 12.5 RATIO (10-20); Calcium,Total 8.9 mg/dL (8.5-10.1); Chloride 106 mmol/L (98-107); EST Glomerular Filtration Rate 76 mL/min (>60); Est Glom Filt Rate - Afr Amer 92 mL/min (>60); Estimated Creatinine Clearance 81.97 ml/min; Glucose 109 mg/dL (74-106); Potassium 4.7 mmol/L (3.5-5.1); Sodium Level 141 mmol/L (136-145)
== END 2022-07-01 21:38 | disposition home or self-care (01) ==
PROVIDERS: Emergency Provider Emergency Medicine; PCP Family Medicine; Visit Provider Emergency Medicine
DX: R11.2 Nausea with vomiting, unspecified (principal); Z87.891 Personal history of nicotine dependence; F90.9 Attention-deficit hyperactivity disorder, unspecified type; Z79.899 Other long term (current) drug therapy
CPT/HCPCS: 80048; 96361; 96374; 99283; J7030; A4216; J2405

== ENCOUNTER 2023-06-08 13:10 | Emergency (ER) | payer BC, SELFPAY ==
[2023-06-08 13:11] VITALS: BP 157/89; PULSE 88; RESP 18; TEMP 35.6; O2SAT 97; BMI 32.9
[2023-06-08 13:16] VITALS: O2SAT 99
--- NOTE | 2023-06-08 13:21 | EDS_ITS ---
HPI History of Present Illness Chief Complaint: Cough [facility] Medical History ADHD Encounter for sterilization Hematuria Kidney stones Home Medications dextroamphetamine-amphetamine 30 mg tablet (Adderall) 30 mg PO BID 10/06/18 [History Last Taken Unknown] sertraline 100 mg tablet 200 mg PO DAILY 07/01/22 [History Last Taken Unknown] Allergy/AdvReac Type Severity Reaction Status Date / Time amoxicillin Allergy Rash Verified 06/08/23 13:12 Penicillins Allergy Rash Verified 06/08/23 13:12 Family History Brother Hypertension High cholesterol Father Hypertension High cholesterol Cancer skin cancer Surgical History History of local excision of skin lesion History of vasectomy (~06/2021) Social History household members: other Smoking Status: Former smoker alcohol intake: current alcohol intake frequency: other substance use type: does not use EXAM Physical Exam Const Vital Signs: 06/08/23 13:11 06/08/23 13:16 Temperature 96.1 F L Temperature Source Temporal Pulse Rate 88 Respiratory Rate 18 Respiratory Effort Normal Non-Labored Respiratory Depth Normal Respiratory Pattern Normal Blood Pressure 157/89 H Blood Pressure Mean 111 Pulse Ox 97 Oxygen Delivery Method Room Air Room Air MDM MDM MDM Narrative Medical decision making narrative: HISTORY OF PRESENT ILLNESS: 32-year-old male here for cough for 2 months. States he has been on antibiotics and steroids but is not getting better. No Chest pain or shortness of breath. REVIEW OF SYSTEMS: Pertinent positives: Cough Pertinent negatives: Chest pain, shortness of breath, syncope PHYSICAL EXAM: Nursing triage notes reviewed, Vital signs reviewed Constitutional: please see mdm HENT: MMM Eyes: Pupils equal round and reactive to light, Extraocular muscles intact Neck: No stridor, no JVD, full neck ROM Lungs: Clear to auscultation, No wheezing or rales. No increased work of breathing, no conversational dyspnea, no accessory muscle use, no nasal flaring. No respiratory distress noted Heart: Regular rate and rhythm, No murmurs, No rubs and No gallops, 2+ distal pulses (radial, femoral, posterior tibial) in all extremities Abdomen: Soft, there is no tenderness, rigidity, rebound or guarding, no obvious peritoneal signs, no palpable pulsatile abdominal masses, no auscultated abdominal bruit : No CVAT Extremities: No edema Neuro: No focal neurological deficits, cranial nerves II through XII intact, 5/5 strength in all extremities. Intact sensation to light touch in all extremities, 2+ reflexes bilateral patella tendons. Normal gait. No ataxia. Skin: No rash or lesions noted MEDICAL DECISION MAKING: Chief Complaint: Cough External records reviewed: No recent Rose imaging of the patient's chest Factors affecting care: ADHD, depression Social determinants of health: none History obtained from others: none Consults: none MDM Narrative: Was hemodynamically stable, afebrile, nontoxic-appearing. Lungs are clear. His work of breathing or conversational dyspnea. No indication for advanced airway at this time. I considered the following differential diagnosis: Pneumonia, COVID, flu, bronchitis ALL IMAGES (IF OBTAINED) HAVE BEEN PERSONALLY REVIEWED AND INTERPRETED BY MYSELF . I have personally reviewed the patient's chest x-ray. Chest x-ray is unremarkable for pulmonary edema, pneumothorax, pneumonia or focal cardiopulmonary abnormality. COVID and flu are negative The synthesis of the patient's history, physical exam, labs images suggest no acute etiology. Likely ongoing inflammation. Steroids not initially indicated. Give Tessalon Perles to relieve cough. The patient and/or family, caregivers express understanding. The patient and/or family, caregivers agrees with the plan. Shared decision making: I will have a discussion with the patient and or visitors regarding risk/benefits of further testing or admission. They will be made aware of of the risk/benefits inherent in this decision they will be given the opportunity to voice understanding. Total critical care time today provided was at least 0 minutes. This excludes separately billable procedures. Critical care time (if documented) is secondary to the patient having high probability of clinically significant/life threatening deterioration in the patient's condition which required my urgent intervention. Impression: 1. Cough Dispo: discharge Radiography Diagnostic Testing: Clinical Impression(s) from Imaging Studies Chest X-Ray 06/08/23 13:50 IMPRESSION: No acute cardiopulmonary process identified. Electronically Signed: Shania Suggs MD at 14:20 EST Reading Location ID and State: [facility] / [place] Tel , Service support , Discharge Plan Triage Chief Complaint: Cough ED Provider: Roderick Enriquez Dx/Rx/DC Orders Instructions: ED Cough Chronic Uncertain Cause Adult Prescriptions: No Action dextroamphetamine-amphetamine [Adderall] 30 MG tablet 30 mg PO BID sertraline 100 mg tablet 200 mg PO DAILY Patient Comments: take 2 tablets by mouth once daily Primary Care Provider: Niraj Ellison Referrals: Niraj Ellison MD [Primary Care Provider] - Activity Restrictions/Additional Instructions: Thank you for trusting us with your care today! Please take Tylenol (2 pills, 650 mg), ibuprofen (2 pills, 400 mg) every 6 hours as needed for pain and fever control. Please take Tessalon Perles as needed to relieve cough. Please return to the emergency department if your symptoms change or worsen. Please follow with your primary care physician for further outpatient evaluation and management. Disposition Disposition: Home, Self Care
--- NOTE | 2023-06-08 13:50 | RAD_ITS ---
HISTORY: cough. TECHNIQUE: XR Chest 2 Views. COMPARISON: None. FINDINGS: CARDIOMEDIASTINAL BORDERS: Cardiac silhouette within normal limits in size. Mediastinal contour unremarkable. LUNGS: Radiographically clear. PLEURA: No pleural effusion or pneumothorax seen. OSSEOUS STRUCTURES: Unremarkable. RAD/Chest PA and Lateral IMPRESSION: No acute cardiopulmonary process identified. Electronically Signed: Shania Suggs MD at 14:20 EST ,
[2023-06-08] MEDS: Benzonatate 100 MG Capsule PO (14:02)
[2023-06-08 14:58] VITALS: BP 137/63; PULSE 84; RESP 16; O2SAT 99
== END 2023-06-08 14:59 | disposition home or self-care (01) ==
PROVIDERS: Emergency Provider Emergency Medicine; PCP Family Medicine; Visit Provider Emergency Medicine
DX: R05.9 Cough, unspecified (principal); F90.9 Attention-deficit hyperactivity disorder, unspecified type; F32.A Depression, unspecified; Z87.891 Personal history of nicotine dependence
CPT/HCPCS: 71046; 87428; 99282

== ENCOUNTER 2023-09-23 23:13 | Emergency (ER) | payer BC, SELFPAY ==
[2023-09-23 23:14] VITALS: BP 155/94; PULSE 86; RESP 16; TEMP 36.6; O2SAT 99; BMI 31.0
[2023-09-24] MEDS: Ondansetron 4 MG/2 ML Vial IV (01:11)
[2023-09-24] MEDS: 0.9% Normal Saline (1000mL) 1,000 ML 1000 ML IV (01:11)
[2023-09-24 01:13] VITALS: BP 130/85; PULSE 66; RESP 19; O2SAT 94
--- NOTE | 2023-09-24 02:08 | EDS_ITS ---
HPI History of Present Illness Chief Complaint: Nausea/Vomiting Informant: patient Narrative Narrative: 33-year-old male presented to the emergency room with vomiting and diarrhea. Patient tried home Zofran without relief. No reported fevers. No blood in the stool. No history of colitis or diverticulitis or other inflammatory bowel conditions. Patient states that once he tried the Zofran it did not help he decided he needed to come to emergency so that he could stay hydrated. [facility] Medical History ADHD Encounter for sterilization Hematuria HTN (hypertension) Kidney stones Home Medications dextroamphetamine-amphetamine 30 mg tablet (Adderall) 30 mg PO BID 10/06/18 [History Last Taken Unknown] sertraline 100 mg tablet 200 mg PO DAILY 07/01/22 [History Last Taken Unknown] benzonatate 100 mg capsule 200 mg (2 x 100 mg) PO TID #21 caps 06/08/23 [Rx Last Taken Unknown] promethazine 25 mg tablet 25 mg PO Q6H PRN PRN Nausea #10 TABLETS 09/24/23 [Rx Last Taken Unknown] Allergy/AdvReac Type Severity Reaction Status Date / Time amoxicillin Allergy Rash Verified 09/23/23 23:14 Penicillins Allergy Rash Verified 09/23/23 23:14 Family History Brother Hypertension High cholesterol Father Hypertension High cholesterol Cancer skin cancer Surgical History History of local excision of skin lesion History of vasectomy (~06/2021) Social History household members: other Smoking Status: Former smoker alcohol intake: current alcohol intake frequency: other substance use type: does not use ROS ROS ED Constitutional Constitutional ED: Denies chills, fever(s) or weight loss Eyes Eyes: Denies change in vision or diplopia ENT ENT ED: Denies ear pain, rhinorrhea or sore throat Cardiovascular Cardiovascular: Denies chest pain, orthopnea, palpitations or racing heartbeat Respiratory/Chest Respiratory/Chest: Denies cough, dyspnea or orthopnea Gastrointestinal Gastrointestinal: Reports diarrhea, nausea and vomiting; Denies abdominal pain Genitourinary Genitourinary ED: Denies dysuria, hematuria or urinary frequency Musculoskeletal Musculoskeletal: Denies arthralgias or myalgias Integumentary Denies abscess or rash Neurologic Neurologic: Denies headache(s) or weakness Psychiatric Psychiatric: Denies anxiety, depression, suicidal ideation or suicidal thoughts Endocrine Endocrinology: Denies polydipsia, polyphagia or polyuria Allergic/Immunologic Allergic/Immunologic ED: Denies mouth swelling, tongue swelling or urticaria EXAM Physical Exam Const Vital Signs: 09/23/23 23:14 09/24/23 01:13 Temperature 97.8 F Temperature Source Temporal Pulse Rate 86 66 Respiratory Rate 16 19 H Blood Pressure 155/94 H 130/85 H Blood Pressure Mean 114 100 Pulse Ox 99 94 Oxygen Delivery Method Room Air Positive well nourished and well developed General Appearance ED: well developed HEENT Reports normocephalic, head/scalp atraumatic and moist mucous membranes Eyes PERRL and EOMs intact bilaterally Neck no lymphadenopathy, supple and no JVD Resp normal respiratory effort and clear to auscultation bilaterally Cardio regular rate, regular rhythm and no murmurs GI normal to inspection, nondistended, normoactive bowel sounds and non-tender Palpation: soft Back/Spine no CVA tenderness and normal ROM Extremity normal to inspection General Extremety ED: Negative for edema General Extremity: Negative for edema Neuro oriented x3 and CN's II-XII intact bilaterally Sensorium / Orientation: alert Motor Exam: strength 5/5 throughout Psych mental status grossly normal Mood & Affect: Negative for depressed or tearful Skin no rashes or lesions noted and no wounds MDM MDM MDM Narrative Medical decision making narrative: Differential diagnosis includes but not limited to viral and bacterial gastroenterology, bowel obstruction, colitis, diverticulitis, ileus. Based on his physical exam of hyperactive bowel sounds and a nontender abdomen I think a viral gastroenteritis is the most likely diagnosis. He received a liter of fluid and Zofran. He will be given a p.o. challenge and if passed discharged home. History & Record Review Discussion w/independent historian: Patient Discharge Plan Triage Chief Complaint: Nausea/Vomiting ED Provider: Tom Arteaga Dx/Rx/DC Orders Clinical Impression: Vomiting and diarrhea, Viral gastroenteritis Instructions: ED Gastroenteritis, Viral (Adult) Prescriptions: New promethazine [promethazine] 25 mg tablet 25 mg PO Q6H PRN PRN (Reason: Nausea) Qty: 10 0RF No Action dextroamphetamine-amphetamine [Adderall] 30 MG tablet 30 mg PO BID sertraline 100 mg tablet 200 mg PO DAILY Patient Comments: take 2 tablets by mouth once daily benzonatate 100 mg capsule 200 mg PO TID Qty: 21 0RF Primary Care Provider: Niraj Ellison Referrals: Niraj Ellison MD [Primary Care Provider] - 3-5 Days if not improving Disposition Disposition: Home, Self Care
[2023-09-24 02:19] VITALS: BP 132/78; PULSE 92; RESP 16; TEMP 36.9; O2SAT 99
== END 2023-09-24 02:20 | disposition home or self-care (01) ==
PROVIDERS: Emergency Provider Emergency Medicine; PCP Family Medicine; Visit Provider Emergency Medicine
DX: A08.4 Viral intestinal infection, unspecified (principal); Z87.891 Personal history of nicotine dependence; I10 Essential (primary) hypertension
CPT/HCPCS: 96361; 96374; 99283; J7030; J2405

== ENCOUNTER 2023-10-06 05:48 | Emergency (ER) | payer BC, SELFPAY ==
[2023-10-06 05:49] VITALS: BP 143/106; PULSE 86; RESP 20; TEMP 35.9; O2SAT 100; BMI 30.2
[2023-10-06] MEDS: 0.9% Normal Saline (1000mL) 1,000 ML 999 ML IV ×2 (06:21→07:11)
[2023-10-06] MEDS: DiphenhydrAMINE 50 MG/ML Syringe 12.5 MG IV (06:22)
[2023-10-06] MEDS: proCHLORPERazine 10 MG/2 ML Vial IV (06:22)
[2023-10-06] MEDS: Diphenoxylate/Atrop 1 Tablet 2 TABLET PO (06:23)
[2023-10-06 06:24] LABS: Absolute Lymphocyte Count 1.98 X10^3/uL (0.83-4.51); Absolute Neutrophil Count 14.7 X10^3/uL (2.0-7.7); Basophil# 0.07 X10^3/uL; Basophil% 0.4 % (0-1); Eosinophil# 0.11 X10^3/uL; Eosinophils% 0.6 % (0-5); Lymphocyte # 1.98 X10^3/ul (0.83-4.51); Lymphocyte % 11.2 % (19-41); Mean Corp Hgb Conc 33.9 g/dL (32-36); Mean Corpuscular Hgb 29.4 pg (27.0-32.0); Mean Corpuscular Volume 86.7 fL (80-94); Mean Platelet Vol. 9.5 fl (6.2-12.0); Monocyte# 0.71 X10^3/uL; NRBC Flagged by Analyzer 0 % (0-5); Neutrophil # 14.73 X10^3/uL (2.7-7.7); Neutrophil % 83.2 % (47-70); POSITIVE MORPHOLOGY YES; Platelet Count 309 K/mm3 (150-450); RBC Distribution Width CV 12.7 % (11.6-14.6); RBC Distribution Width SD 39.1 fl (35.1-43.9); White Blood Count 17.7 K/mm3 (4.4-11.0)
--- NOTE | 2023-10-06 06:26 | EX.ED.DYSGE1 ---
HPI History of Present Illness Chief Complaint: Nausea/Vomiting/Diarrhea Informant: patient Narrative Narrative: Patient is a 33-year-old male with past medical history of ADHD. He was seen roughly 2 weeks ago for nausea vomiting diarrhea and diagnosed with gastroenteritis. He states he completely recovered from that after a few days and has been doing well. He states last night he ate [employer] cooking and then roughly 6 to 8 hours later awoke with generalized abdominal discomfort and has had bouts of nausea vomiting and diarrhea. He denies any known sick contact; he denies any recent travel outside the country; he denies any recent antibiotic use and he denies any livestock exposure. He states he does not have a history of intestinal disorders such as ulcerative colitis or Crohn's disease or IBS. He reports he has not been unable to keep any food or fluid down since 3 AM and secondary to his comes in for evaluation [facility] Medical History ADHD Encounter for sterilization Hematuria HTN (hypertension) Kidney stones Home Medications dextroamphetamine-amphetamine 30 mg tablet (Adderall) 30 mg PO BID 10/06/18 [History Last Taken Unknown] sertraline 100 mg tablet 200 mg PO DAILY 07/01/22 [History Last Taken Unknown] benzonatate 100 mg capsule 200 mg (2 x 100 mg) PO TID #21 caps 06/08/23 [Rx Last Taken Unknown] promethazine 25 mg tablet 25 mg PO Q6H PRN PRN Nausea #10 TABLETS 09/24/23 [Rx Last Taken Unknown] Allergy/AdvReac Type Severity Reaction Status Date / Time amoxicillin Allergy Rash Verified 09/23/23 23:14 Penicillins Allergy Rash Verified 09/23/23 23:14 Family History Brother Hypertension High cholesterol Father Hypertension High cholesterol Cancer skin cancer Surgical History History of local excision of skin lesion History of vasectomy (~06/2021) Social History household members: other Smoking Status: Former smoker alcohol intake: current alcohol intake frequency: other substance use type: does not use ROS ROS ED Constitutional Constitutional ED: Denies chills or fever(s) ENT ENT ED: Denies sore throat Cardiovascular Cardiovascular: Denies chest pain Respiratory/Chest Respiratory/Chest: Denies cough or dyspnea Gastrointestinal Gastrointestinal: Reports diarrhea, nausea and vomiting; Denies abdominal pain Genitourinary Genitourinary ED: Denies dysuria Musculoskeletal Musculoskeletal: Denies myalgias Integumentary Denies rash Neurologic Neurologic: Denies headache(s) Hematologic/Lymphatic Hematologic/Lymphatic: Denies easy bleeding or easy bruising EXAM Physical Exam Const Vital Signs: 10/06/23 05:49 Temperature 96.7 F L Temperature Source Temporal Pulse Rate 86 Respiratory Rate 20 H Blood Pressure 143/106 H Blood Pressure Mean 118 Pulse Ox 100 Oxygen Delivery Method Room Air Positive well nourished and well developed General Appearance ED: well developed; Negative for pallor HEENT HEENT Narrative: Mucous membranes are slightly dry and tacky No signs of infection noted in the posterior pharynx No tongue or lip swelling no oral lesions no airway edema or compromise Eyes PERRL and EOMs intact bilaterally General Eye ED: Negative for scleral icterus Neck supple Neck Narrative: No nuchal rigidity or meningeal signs Resp normal respiratory effort and clear to auscultation bilaterally Cardio regular rate and regular rhythm GI non-tender, non-distended and no masses GI Narrative: Abdomen is soft nontender nondistended with hyperactive bowel sounds. No voluntary guarding or rigidity or pulsatile mass Auscultation: hyperactive bowel sounds Palpation: soft Back/Spine no CVA tenderness Extremity normal to inspection Neuro oriented x3, CN's II-XII intact bilaterally and no sensory deficits noted Sensorium / Orientation: alert Motor Exam: strength 5/5 throughout Psych mental status grossly normal Skin no rashes or lesions noted, no wounds and skin turgor normal General Skin Exam: Negative for jaundice or pallor MDM MDM MDM Narrative Medical decision making narrative: Patient presented to the ER hypertensive but otherwise with stable vitals. He reported sudden onset of nausea vomiting and diarrhea roughly 6 to 8 hours after eating. He denied any known sick contacts and has no report of risk factors for infectious diarrhea such as travel outside the country antibiotic use or livestock exposure. His abdomen is soft and nonsurgical and therefore do not feel the need for a CT scan as concern for biliary colic versus acute cholecystitis versus pancreatitis versus diverticulitis/colitis is low. Patient was given IV fluids as well as Lomotil and Compazine and had resolution/improvement of his symptoms. Laboratory studies revealed leukocytosis at 17 and an elevated hemoglobin at 19 but I feel this is related to stress response and dehydration and as the patient's abdomen is soft and he is not requiring pain medication I do not feel there is a need for CT scan at this time. Otherwise there were no clinically significant changes such as severe electrolyte abnormality or acute kidney injury. After being medicated patient had no further bouts of vomiting or diarrhea while in the ER and therefore is otherwise safe for discharge History & Record Review Discussion w/independent historian: Patient Lab Data Attestation: I reviewed the patient's lab results. Labs: Laboratory Results - last 24 hr 10/06/23 06:05 WBC 17.7 H RBC 6.70 H Hgb 19.7 H* Hct 58.1 H MCV 86.7 MCH 29.4 MCHC 33.9 RDW Std Deviation 39.1 RDW Coeff of [place] 12.7 Plt Count 309 MPV 9.5 Immature Gran % (Auto) 0.600 Neut % (Auto) 83.2 H Lymph % (Auto) 11.2 L [place] % (Auto) 4.0 Eos % (Auto) 0.6 Baso % (Auto) 0.4 Absolute Neuts (auto) 14.7 H Absolute Lymphs (auto) 1.98 Nucleated RBC % 0 Sodium 135 L Potassium 4.1 Chloride 104 Carbon Dioxide 24.0 Anion Gap 7 BUN 14 Creatinine 1.64 H Estim Creat Clear Calc 66.65 Est GFR (MDRD) Af Amer 63 Est GFR (MDRD) Non-Af 52 L BUN/Creatinine Ratio 8.5 L Glucose 170 H Calcium 9.9 Magnesium 2.3 Total Bilirubin 0.60 Direct Bilirubin 0.16 AST 31 ALT 67 H Alkaline Phosphatase 72 Total Protein 9.3 H Albumin 5.0 Globulin 4.3 H Lipase 41 Discharge Plan Triage Chief Complaint: Nausea/Vomiting/Diarrhea ED Provider: Watson Demarco Dx/Rx/DC Orders Clinical Impression: Nausea vomiting and diarrhea, Mild dehydration, ADHD Instructions: Dehydration, ED Food Poisoning (Adult) Prescriptions: No Action dextroamphetamine-amphetamine [Adderall] 30 MG tablet 30 mg PO BID sertraline 100 mg tablet 200 mg PO DAILY Patient Comments: take 2 tablets by mouth once daily benzonatate 100 mg capsule 200 mg PO TID Qty: 21 0RF promethazine [promethazine] 25 mg tablet 25 mg PO Q6H PRN PRN (Reason: Nausea) Qty: 10 0RF Stand Alone Forms: ED Work / School Excuse Primary Care Provider: Niraj Ellison Referrals: Niraj Ellison MD [Primary Care Provider] - Activity Restrictions/Additional Instructions: Please keep your nausea under control with the Phenergan you received from your previous visit and keep yourself well-hydrated. Return to the ER if you have persistent symptoms or any further concerns Disposition Disposition: Home, Self Care
[2023-10-06 06:28] LABS: Hematocrit 58.1 % (40-54)
[2023-10-06 06:29] LABS: Differential Indicated SCAN CRITERIA MET; Hemoglobin 19.7 g/dL (13.0-16.5)
[2023-10-06 06:41] LABS: AST(SGOT) 31 U/L (15-37); Alanine Aminotransfer ALT/SGPT 67 U/L (16-61); Alkaline Phosphatase 72 U/L (45-117); Anion Gap 7 (5-15); BUN 14 mg/dL (7-18); BUN/Creat Ratio 8.5 RATIO (10-20); Bilirubin, Direct 0.16 mg/dL (0.00-0.30); Calcium,Total 9.9 mg/dL (8.5-10.1); Chloride 104 mmol/L (98-107); Creatinine, Serum 1.64 mg/dL (0.70-1.30); EST Glomerular Filtration Rate 52 mL/min (>60); Est Glom Filt Rate - Afr Amer 63 mL/min (>60); Estimated Creatinine Clearance 66.65 ml/min; Globulin 4.3 g/dL (2.2-4.2); Glucose 170 mg/dL (74-106); Lipase 41 U/L (13-75); Magnesium 2.3 mg/dL (1.6-2.6); Potassium 4.1 mmol/L (3.5-5.1); Protein, Total 9.3 g/dL (6.4-8.2); Sodium Level 135 mmol/L (136-145)
[2023-10-06 07:03] LABS: Differential Comment SCANNED
[2023-10-06 08:00] VITALS: BP 120/64; PULSE 78; RESP 16; TEMP 36.4; O2SAT 99
[2023-10-06 16:09] LABS: Pathologist Review Reviewed
== END 2023-10-06 08:03 | disposition home or self-care (01) ==
PROVIDERS: Emergency Provider Emergency Medicine; PCP Family Medicine; Visit Provider Emergency Medicine
DX: R11.2 Nausea with vomiting, unspecified (principal); E86.0 Dehydration; F90.9 Attention-deficit hyperactivity disorder, unspecified type; Z87.891 Personal history of nicotine dependence; I10 Essential (primary) hypertension; R19.7 Diarrhea, unspecified
CPT/HCPCS: 80048; 80076; 83690; 83735; 85025; 96361; 96374; 96375; 99283; J7030; A4216